=== PATIENT | male | born 1965 | race Caucasian/White ===

== ENCOUNTER 2025-01-14 08:02 | Outpatient (CLI) | payer OTHER | END 2025-01-14 08:03 | disposition home or self-care (01) | LOC: SONOGRAMA 08:02 | PROVIDERS: ATTEND Pathology Anatomic Pathology & Clinical Pathology | DX: C49.0 Malignant neoplasm of connective and soft tissue of head, face and neck (principal); D48.11 Desmoid tumor ==